=== PATIENT | female | born 1955 | race Caucasian/White ===

== ENCOUNTER 2023-02-28 00:03 | Outpatient (REF) | payer OTHER, SELFPAY ==
--- OUTSIDE RECORDS SUMMARY | 2023-02-28 00:10 | XMS_ITS | Continuity of Care Document ---
Author Name Unknown Organization [facility] Address [address] [address] [place] [address] Phone Care Team Providers Care Meter Supervisor Name Role Phone Eulalio Tom MD Unavailable Unavailable Procedures Procedure Date Init Hosp-da E&m Mod Severity 7 Colonoscopy Flex; W/bx 1/mx Colonoscopy Flex; W/remov Les- 17 Moderate Sedation, Initial 15 minutes De Advance Directives Directive Yes / No Effective Date File Name No Information Encounters Encounter Description Practice Location Reason(s) For Visit Diagnoses Date Provider Providers Copied on Encounter [facility], [address] [address], [place], [place], [id number], tel:[phone] [facility] No Information Vaishali Tsai. [address] [place] [address], [id number], [place]. tel:[phone] Init Hosp-da E&m Mod Severity [facility], [address] [address], [place], [place], [id number], tel:[phone] [facility] No Information Vaishali Tsai. [address] [place] [address], [id number], [place]. tel:[phone] Referring Provider: Reginald Gutierrez MD , [address] [place] [address], [id number]. tel:[phone] Family History Family Member Type Diagnosis Age At Onset No Information Payers Payer name Insurance type Covered alliance party ID Authoriza tion(s) No Information Social History Type Description Quantity Date Captured Comments Sex Female Smoking Status No Information Chief Complaint And Reason For Visit No Information Reason For Referral Reason For Referral No Information Plan Of Treatment Date Type Action Status No Information History Of Present Illness Encounter Date Complaint History Of Prese nt Illness No Information Functional Status Date Functional Assessmen t No Information Instructions Date Instruction Additional Infor mation No Information Assessments Type Assessment Date No Information Patient Care Teams Name Effective Dates (start - stop) Status Members No Information
[2023-02-28 09:13] LABS: PCR FLU A Negative PCR FLU A (Negative); PCR FLU B Negative PCR FLU B (Negative); SARS PCR* ND (Negative)
== END 2023-02-28 00:04 | disposition home or self-care (01) ==
LOC: LAB 00:03
PROVIDERS: PCP Family Medicine; Visit Provider Nurse Practitioner Adult Health
DX: J10.1 Influenza due to other identified influenza virus with other respiratory manifestations (principal)
CPT/HCPCS: 87631; 87635

== ENCOUNTER 2023-10-22 17:50 | Outpatient (CLI) | payer OTHER, SELFPAY | END 2023-10-22 17:51 | disposition home or self-care (01) | LOC: AMB 10-23 09:08 | PROVIDERS: PCP Family Medicine; Visit Provider Emergency Medicine | DX: S81.811A Laceration without foreign body, right lower leg, initial encounter (principal); W31.89XA Contact with other specified machinery, initial encounter; Y93.I9 Activity, other involving external motion; Y92.099 Unspecified place in other non-institutional residence as the place of occurrence of the external cause | CPT/HCPCS: A0425; A0427 ==

== ENCOUNTER 2023-10-22 18:08 | Emergency (ER) | payer OTHER, SELFPAY ==
[2023-10-22 18:10] VITALS: BP 134/90; PULSE 80; RESP 18; TEMP 36.4; O2SAT 97; BMI 26.6
--- NOTE | 2023-10-22 18:28 | ED_ITS ---
HPI - General Adult General Date Seen: 10/22/23 Chief complaint: Laceration/Wound Stated complaint: Leg Laceration Time Seen by Provider: 10/22/23 18:18 History of Present Illness HPI narrative: This is a very pleasant 68-year-old female brought to the ER today by EMS from her assisted living for evaluation of a laceration to her right fernandez. The injury occurred at her care center just prior to arrival. She was trying to get up and accidentally gash her right fernandez against her wheelchair. She suffered a curvilinear laceration right over the anterior tibial spine. Her providers from the care center were concerned that it was ?down to the bone, however when EMS picked her up they feel like it is more of a superficial skin tear overlying the fernandez, but not down to the bone. Bleeding was controlled by direct pressure. She is not anticoagulated. No other injuries. She really did not hit her leg very hard, she does caught her fernandez on the sharp edge of her wheelchair. Patient is unsure of her last tetanus shot. In the [place] database her last tetanus shot was 3 years ago in 2019. She has no history of diabetes or immunosuppression. Related Data Home Medications Medication Instructions Recorded Confirmed acetaminophen 650 mg 1,300 mg PO BID 10/22/23 10/22/23 tablet,extended release cholecalciferol (vitamin D3) 25 25 mcg PO DAILY 10/22/23 10/22/23 mcg (1,000 unit) tablet cyanocobalamin (vitamin B-12) 1,000 mcg PO DAILY 10/22/23 10/22/23 1,000 mcg tablet folic acid 1 mg tablet 1 mg PO DAILY 10/22/23 10/22/23 levothyroxine 100 mcg tablet 100 mcg PO DAILY 10/22/23 10/22/23 levothyroxine 88 mcg tablet 88 mcg PO DAILY 10/22/23 10/22/23 melatonin 5 mg tablet 5 mg PO QPM 10/22/23 10/22/23 mirtazapine 7.5 mg tablet 7.5 mg PO QPM 10/22/23 10/22/23 ondansetron HCl 4 mg tablet 4 mg PO Q4H PRN 10/22/23 10/22/23 pantoprazole 40 mg tablet,delayed 40 mg PO DAILY 10/22/23 10/22/23 release rosuvastatin 5 mg tablet 5 mg PO DAILY 10/22/23 10/22/23 sennosides 8.6 mg tablet (senna) 17.2 mg PO BID 10/22/23 10/22/23 thiamine HCl (vitamin B1) 100 mg 100 mg PO DAILY 10/22/23 10/22/23 tablet trazodone 150 mg tablet 150 mg PO QPM 10/22/23 10/22/23 trazodone 50 mg tablet 50 mg PO QPM 10/22/23 10/22/23 venlafaxine 150 mg 150 mg PO DAILY 10/22/23 10/22/23 capsule,extended release 24 hr venlafaxine 37.5 mg 37.5 mg PO DAILY 10/22/23 10/22/23 capsule,extended release 24 hr Allergies Allergy/AdvReac Type Severity Reaction Status Date / Time No Known Drug Allergies Allergy Verified 10/22/23 18:14 [facility] Social History Smoking Status: Never smoker Do you use any of these nicotine containing products: None How often do you have a drink containing alcohol: never AUDIT-C Alcohol total score: 0 Non-prescribed substance use: denies use Exam Narrative: Exam Narrative: Constitutional: Appears well-developed and well-nourished. Alert. Conversant and polite. Non toxic. HENT: Head: Atraumatic. Nose: Nose normal. Mouth/Throat: Oral mucosa is clear and moist. no trismus. Pharynx normal. Tonsils symmetric. No tonsillar enlargement, erythema, or exudate. Eyes: Conjunctivae normal. EOM normal. Pupils equal, round, and reactive to light. No scleral icterus. Neck: Normal range of motion. Neck supple. No tracheal deviation present. Cardiovascular: Normal rate, regular rhythm. Symmetric DP and PT artery pulses Pulmonary/Chest: Effort normal. No stridor. No respiratory distress. Musculoskeletal: RUE: Normal range of motion. No tenderness. No deformity LUE: Normal range of motion. No tenderness. No deformity RLE: There is a 8 cm curvilinear skin tear. It is approximately 2[address] from the knee to the anterior ankle and located right over the anterior tibial spine/fernandez. There is exposed dermis and subcutaneous tissue but there is not in fact, exposed bone. Normal range of motion in her knee and ankle.. No edema. No tenderness. No deformity LLE: Normal range of motion. No edema. No tenderness. No deformity Neurological: Alert and oriented to person, place, and time. Normal strength. CN II-VII intact. No sensory deficit. GCS eye subscore is 4. GCS verbal subscore is 5. GCS motor subscore is 6. Normal coordination Skin: Skin is warm and dry. No rash noted. No pallor. Normal capillary refill. Psychiatric: Normal mood. Normal affect. Const: Vital Signs, click to edit/add: Vital Signs - 24 hr 10/22/23 18:10 Temperature 97.5 F L Pulse Rate [Pulse Oximeter] 80 Respiratory Rate 18 Blood Pressure [[facility] Upper Arm] 134/90 H Pulse Oximetry 97 Oxygen Delivery Me thod Room Air Course Vital Signs Vital signs: Initial Vital Signs Temperature 97.5 F L 10/22/23 18:10 Temperature Source Temporal Artery Scan 10/22/23 18:10 Pulse Rate 80 10/22/23 18:10 Respiratory Rate 18 10/22/23 18:10 Blood Pressure 134/90 H 10/22/23 18:10 Blood Pressure Mean 104 10/22/23 18:10 Blood Pressure Position Supine 10/22/23 18:10 Pulse Oximetry 97 10/22/23 18:10 Oxygen Delivery Method Room Air 10/22/23 18:10 Vital Signs Temperature 97.5 F L 10/22/23 18:10 Pulse Rate 80 10/22/23 18:10 Respiratory Rate 18 10/22/23 18:10 Blood Pressure 134/90 H 10/22/23 18:10 Pulse Oximetry 97 10/22/23 18:10 Oxygen Delivery Method Room Air 10/22/23 18:10 Temperature 97.5 F L 10/22/23 18:10 Pulse Rate 80 10/22/23 18:10 Respiratory Rate 18 10/22/23 18:10 Blood Pressure 134/90 H 10/22/23 18:10 Pulse Oximetry 97 10/22/23 18:10 Oxygen Delivery Method Room Air 10/22/23 18:10 Medical Decision Making MDM Narrative Medical decision making narrative: Findings and exam are consistent with an fairly large skin tear on her right anterior fernandez over the anterior tibial spine. Her wound was repaired as noted above. There is no evidence at this time to suggest any associated fracture or foreign body. There is no evidence to suggest tendon or arterial injury and patient is neurologically in tact. Discussed wound care, keeping the Dermabond and Steri-Strips clean and dry for at least 7 days. After that she can use clippers or scissors to clean off any peeling edges. Ideally would want this Steri-Strips and Dermabond to stay on as long as possible, perhaps even a couple of weeks for the wound to heal underneath. Indications to seek urgent reevaluation and signs of infection (including but not limited to increasing pain, redness, swelling, fevers, and drainage) were reviewed. Tetanus is up-to-date. This is a clean and non-contaminated wound in which prophylactic antibiotics are not indicated. An understanding of the discharge instructions and need for follow up were verbally confirmed. Discharge Plan Discharge Clinical Impression: Skin tear Patient Disposition: Home, Self-Care Condition: Stable Instructions: Laceration (ED), Skin Adhesive Care (ED) Additional Instructions: As we discussed, and the Steri-Strips and skin glue are holding her laceration together. Please leave the glue and Steri-Strips in place for at least a week. Keep the wound clean and dry. Do not submerge underwater, scrubbed it, or apply antibiotic ointment. We do not want the Steri-Strips and Dermabond to peel off for at least 1 week. After 1 week you can begin taking bad this or submerging the wound under water. If the Steri-Strips and skin glue start to peel off, you can use a fingernail clipper or small scissors to trim off the peeling edges. Monitor carefully for any signs of infection. If you have any new redness, swe lling, pus draining from the wound, fever, red streaks spreading up your leg, come back to the ER right away. If you have any recurrent bleeding or other concerns, please come back to the ER right away Prescriptions: No Action sennosides [senna] 8.6 mg tablet 17.2 mg PO BID venlafaxine 37.5 mg capsule,extended release 24hr 37.5 mg PO DAILY trazodone 50 mg tablet 50 mg PO QPM ondansetron HCl 4 mg tablet 4 mg PO Q4H PRN venlafaxine 150 mg capsule,extended release 24hr 150 mg PO DAILY cyanocobalamin (vitamin B-12) 1,000 mcg tablet 1,000 mcg PO DAILY thiamine HCl (vitamin B1) 100 mg tablet 100 mg PO DAILY acetaminophen 650 mg tablet extended release 1,300 mg PO BID levothyroxine 100 mcg tablet 100 mcg PO DAILY levothyroxine 88 mcg tablet 88 mcg PO DAILY pantoprazole 40 mg tablet,delayed release (DR/EC) 40 mg PO DAILY trazodone 150 mg tablet 150 mg PO QPM folic acid 1 mg tablet 1 mg PO DAILY rosuvastatin 5 mg tablet 5 mg PO DAILY mirtazapine 7.5 mg tablet 7.5 mg PO QPM cholecalciferol (vitamin D3) 25 mcg (1,000 unit) tablet 25 mcg PO DAILY melatonin 5 mg tablet 5 mg PO QPM Follow Up/Referrals: Pascual Godoy MD [Primary Care Provider] - Stand Alone Forms: [facility] Info Instructions Procedures Laceration Right fernandez skin tear: Pre procedure diagnosis: 8 cm right fernandez skin tear Verification/time out: correct patient, correct site and correct procedure Site: lower extremity (Right fernandez) and other Side (If applicable): right Size (cm): 8 Description: linear Depth: simple, single layer (Skin tear) Pre-repair: wound explored (No foreign body) Technique: other (Steri-Strips and Dermabond )
--- OUTSIDE RECORDS SUMMARY | 2023-10-22 18:53 | XMS_ITS | Continuity of Care Document ---
Author Name Unknown Organization [facility] Address [address] [address] [place] [address] Phone Care Team Providers Care Bowling Alley Attendant Name Role Phone Eulalio Tom MD Unavailable Unavailable Procedures Procedure Date Init Hosp-da E&m Mod Severity 7 Colonoscopy Flex; W/bx 1/mx Colonoscopy Flex; W/remov Les- 17 Moderate Sedation, Initial 15 minutes De Advance Directives Directive Yes / No Effective Date File Name No Information Encounters Encounter Description Practice Location Reason(s) For Visit Diagnoses Date Provider Providers Copied on Encounter [facility], [address] [address], [place], [place], [id number], tel:[phone] [facility] No Information Vaishali Tsai. [address] [place] [address], [id number], [place]. tel:[phone] Init Hosp-da E&m Mod Severity [facility], [address] [address], [place], [place], [id number], tel:[phone] [facility] No Information Vaishali Tsai. [address] [place] [address], [id number], [place]. tel:[phone] Referring Provider: Reginald Gutierrez MD , [address] [place] [address], [id number]. tel:[phone] Family History Family Member Type Diagnosis Age At Onset No Information Payers Payer name Insurance type Covered libertarian ID Authoriza tion(s) No Information Social History Type Description Quantity Date Captured Comments Sex Female Smoking Status No Information Chief Complaint And Reason For Visit No Information Reason For Referral Reason For Referral No Information History Of Present Illness Encounter Date Complaint History Of Prese nt Illness No Information Functional Status Date Functional Assessmen t No Information Instructions Date Instruction Additional Infor mation No Information Assessments Type Assessment Date No Information Patient Care Teams Name Effective Dates (start - stop) Status Members No Information
== END 2023-10-22 19:02 | disposition home or self-care (01) ==
PROVIDERS: Emergency Provider Emergency Medicine; PCP Family Medicine
DX: S81.811A Laceration without foreign body, right lower leg, initial encounter (principal); W22.09XA Striking against other stationary object, initial encounter; Y92.099 Unspecified place in other non-institutional residence as the place of occurrence of the external cause
CPT/HCPCS: 12004; 99282; 99283

== ENCOUNTER 2023-10-22 18:55 | Outpatient (CLI) | payer OTHER, SELFPAY | END 2023-10-22 18:56 | disposition home or self-care (01) | LOC: AMB 10-23 09:18 | PROVIDERS: PCP Family Medicine; Visit Provider Emergency Medicine | DX: S81.811S Laceration without foreign body, right lower leg, sequela (principal) | CPT/HCPCS: A0425; A0428 ==